=== PATIENT | female | born 1955 | race Caucasian/White ===

== ENCOUNTER → 2022-11-18 | Outpatient (CLI) | payer MEDICARE ==
--- NOTE | 2022-11-18 14:49 | US ---
EXAMINATION TYPE: US carotid duplex BILAT DATE OF EXAM: 11/18/2022 COMPARISON: NONE CLINICAL INDICATION: Female, 66 years old with history of R55 SYNCOPE AND COLLAPSE; syncope. TECHNIQUE: Carotid duplex ultrasound examination. Indirect Doppler criteria was utilized. FINDINGS: EXAM MEASUREMENTS: RIGHT: Peak Systolic Velocity (PSV) cm/sec ----- Right CCA: 63.4 ----- Right ICA: 93.9 ----- Right ECA: 85.2 ICA/CCA ratio: 70.6 RIGHT: End Diastole cm/sec ----- Right CCA: 15.4 ----- Right ICA: 31.4 ----- Right ECA: 0 LEFT: Peak Systolic Velocity (PSV) cm/sec ----- Left CCA: 69.2 ----- Left ICA: 96.8 ----- Left ECA: 89.5 ICA/CCA ratio: 1.4 LEFT: End Diastole cm/sec ----- Left CCA: 16.9 ----- Left ICA: 34.3 ----- Left ECA: 0 VERTEBRALS (direction of flow): Right Vertebral: Antegrade Left Vertebral: Antegrade Rhythm: Normal YARN DYER NOTES: No significant stenosis seen Amaral scale images show mild to moderate peripheral plaque left carotid bulb level. IMPRESSION: No hemodynamically significant stenosis in either internal carotid artery. Criteria for Assigning % of Stenosis / Diameter reduction (Estimation based on the indirect measurements of the internal carotid artery velocities (ICA PSV). 1. Normal (no stenosis)=ICA PSV < 125 cm/s: ratio < 2.0: ICA EDV<40 cm/s. 2. Less than 50% stenosis=ICA PSV < 125 cm/s: ratio < 2.0: ICA EDV<40 cm/s. 3. 50 to 69% stenosis=ICA PSV of 125 to 230 cm/s: ration 2.0 ? 4.0: ICA EDV 40-100 cm/s. 4. Greater than 70% stenosis to near occlusion= ICA PSV > 230 cm/s: ratio > 4.0: ICA EDV > 100 cm/s. 5. Near occlusion= ICA PSV velocities may be low or undetectable: variable ratio and ICA EDV. 6. Total occlusion=unable to detect flow.
--- NOTE | 2022-11-18 17:01 | CA ---
Transthoracic Echo Report Name: Sandra Roland Age: 66 Gender: F : 1955 Exam Date: 11/18/2022 12:27 Exam Location: [facility] Ht (in): 67 Wt (lb): 135 Ordering Physician: Mickey Donato MD Attending/Referring Phys: Rylee Ayon PAC Lithographic Proofer Ethel Lira RDCS Procedure CPT: Indications: R55 SYNCOPE AND COLLAPSE Cardiac Hx: Technical Quality: Good Contrast 1: Total Dose (mL): Contrast 2: Total Dose (mL): MEASUREMENTS (Male / Female) Normal Values 2D ECHO LV Diastolic Diameter PLAX 4.2 cm 4.2 - 5.9 / 3.9 - 5.3 cm LV Systolic Diameter PLAX 2.8 cm IVS Diastolic Thickness 0.9 cm 0.6 - 1.0 / 0.6 - 0.9 cm LVPW Diastolic Thickness 0.9 cm 0.6 - 1.0 / 0.6 - 0.9 cm LV Relative Wall Thickness 0.4 RV Internal Dim ED PLAX 2.6 cm LA Systolic Diameter LX 2.9 cm 3.0 - 4.0 / 2.7 - 3.8 cm LA Volume 36.0 cm??? 18 - 58 / 22 - 52 cm??? M-MODE Aortic Root Diameter MM 2.9 cm MV E Point Septal Separation 0.2 cm AV Cusp Separation MM 1.8 cm DOPPLER AV Peak Velocity 100.8 cm/s AV Peak Gradient 4.1 mmHg MV Area PHT 3.2 cm??? Mitral E Point Velocity 73.9 cm/s Mitral A Point Velocity 54.5 cm/s Mitral E to A Ratio 1.4 MV Deceleration Time 236.8 ms MV E' Velocity 7.1 cm/s Mitral E to MV E' Ratio 10.4 TR Peak Velocity 184.8 cm/s TR Peak Gradient 13.7 mmHg Right Ventricular Systolic Press 18.2 mmHg FINDINGS Left Ventricle Left ventricular ejection fraction is estimated at 60-65 %. Left ventricular cavity size normal. Left ventricular wall thickness normal. No obvious regional wall motion abnormalities. Right Ventricle Normal right ventricular size and function. Right ventricular systolic pressure within normal limits. Right Atrium Normal right atrial size. Left Atrium Normal left atrial size. Mitral Valve Structurally normal mitral valve. Trace to mild mitral regurgitation. Aortic Valve Trileaflet aortic valve. No aortic valve stenosis or regurgitation. Tricuspid Valve Structurally normal tricuspid valve. Mild tricuspid regurgitation. Pulmonic Valve Structurally normal pulmonic valve. No pulmonic regurgitation. Pericardium Normal pericardium. No pericardial effusion. Aorta Normal size aortic root and proximal ascending aorta. CONCLUSIONS Normal LV systolic function Previewed by: Dr. Torin Guillaume MD (Electronically Signed) Final Date: 18 November 2022 17:00
== END | disposition home or self-care (01) ==
LOC: RADECHMAIN 11:57
PROVIDERS: ATTEND Family Medicine
DX: R55 Syncope and collapse (principal)
CPT/HCPCS: 93306; 93880

== ENCOUNTER → 2023-09-03 | Outpatient (CLI) | payer MEDICARE ==
--- NOTE | 2023-09-03 11:21 | US ---
EXAMINATION TYPE: US gallbladder DATE OF EXAM: 09/03/2023 COMPARISON: NONE CLINICAL INDICATION: Female, 67 years old with history of R10.11 RIGHT UPPER QUADRANT PAIN; Pt states RUQ pain x 1 month TECHNIQUE: Multiple sonographic images of the right upper quadrant are obtained. FINDINGS: EXAM MEASUREMENTS: Liver Length: 12.5 cm Gallbladder Wall: 0.2 cm CBD: 0.4 cm Right Kidney: 9.2 x 3.2 x 5.1 cm Pancreas: wnl Liver: wnl Gallbladder: wnl Evidence for sonographic Oreilly's sign: No CBD: wnl Right Kidney: Mildly dilated renal pelvis= 0.7 cm with possible 3mm calculus mid medial within dilat ed renal pelvis IMPRESSION: 1. Mild pelviectasis which may be transient. No calyceal dilatation to suggest hydronephrosis at this time. Possible 3 mm stone within the right renal collecting system. If there is right renal colic, c onsider short interval follow-up. 2. No gallstones or biliary ductal dilatation.
== END | disposition home or self-care (01) ==
LOC: RADUSWWP 10:28
PROVIDERS: ATTEND Family Medicine
DX: N28.89 Other specified disorders of kidney and ureter (principal)
CPT/HCPCS: 76705

== ENCOUNTER → 2023-09-15 | Outpatient (CLI) | payer MEDICARE ==
--- NOTE | 2023-09-15 16:30 | CA ---
Exercise Stress Test Report Name: Sandra Roland Exam Date: 09/15/2023 11:04 Exam Location: [facility] Ht (in): 67 Wt (lb): 142 BSA: 1.75 Ordering Phys: Mickey Donato MD Referring Phys: Neelam Mckinley PAC Technologist: CORTEZ JORGENSEN Age: 67 Gender: F : 1955 Procedure CPT: Indications: R07.89 chest pain ICD-10 Codes: Patient History: CP, FAMILY HX Medications: NONE Meds past 24 hrs: Pretest Chest Pain: STRESS TEST [place] Protocol Exercise Duration (min:sec): 03:[address] Depressions (mm): Angina Score: Fitzpatrick Score: Resting HR (bpm): 66 Peak HR (bpm): 144 Resting BP (mmHg): 161 / 70 Peak BP (mmHg): 207 / 63 MPHR: 151 Target HR: 128 % MPHR: 95 METS: 4.4 Total Dose: Peak Dose: Atropine: Double Product: 91334 BP Response: Stress Termination: Reached target heart rate Stress Symptoms: No chest pain or symptoms Stress Summary: ECG ANALYSIS Resting ECG: Stress ECG: CONCLUSIONS Patient underwent exercise stress EKG with a [place] protocol treadmill stress test. Patient exercised into Stage 1 for a total of 3 minutes reaching a total of 4.4 METS. Patient's maximum heart rate was 144 which represented 95% age-predicted maximum heart rate. Stress EKG findings: At baseline patient's EKG showed normal sinus rhythm, normal axis, no significant ST or T wave abnormalities, T-wave inversion V1, borderline in V2. At peak exercise, EKG showed mildly abnormal response with [address] depressions in the lateral leads. Conclusions: 1. Mildly abnormal EKG response to exercise. Consider stress testing with imaging modality if clinically indicated. 2. Poor exercise capacity. Dr. Mark Duffy DO (Electronically Signed) Final Date: 15 September 2023 16:29
== END | disposition home or self-care (01) ==
LOC: RADNMMAIN 10:33
PROVIDERS: ATTEND Family Medicine
DX: R94.31 Abnormal electrocardiogram [ECG] [EKG] (principal); R07.89 Other chest pain
CPT/HCPCS: 93017

== ENCOUNTER → 2024-02-11 | Outpatient (CLI) | payer MEDICARE ==
--- NOTE | 2024-02-18 21:50 | MM ---
Reason for Exam: Screening (asymptomatic). Last screening mammogram was performed 12 month(s) ago. Patient History: Menarche at age 12. First Full-Term at age 34. Late child-bearing (after 30). Left ovary removed at age 44. Right ovary removed at age 44. Hysterectomy at age 44. Postmenopausal. Patient used Progesterone for 4 years. Excisional Biopsy on the Right side. Excisional Biopsy on the Right side. Maternal aunt had breast cancer. Maternal aunt had breast cancer. Risk Values: Karmen 5 year model risk: 3.3%. NCI Lifetime model risk: 9.4%. Prior Study Comparison: 10/04/2014 Bilateral Screening Mammogram, [facility] [address]. 11/01/2015 Bilateral Screening Mammogram, [facility] [address]. 11/01/2016 Bilateral Screening Mammogram, [facility] [address]. 03/11/2018 Bilateral Screening Mammogram, [facility] [address]. 05/01/2020 Bilateral Screening Mammogram, [facility]. 07/09/2021 Bilateral Screening Mammogram, [facility]. 02/27/2023 Bilateral Screening Mammogram, [facility]. Tissue Density: The breasts are heterogeneously dense, which may obscure small masses. Findings: Analyzed By CAD. Chronic nodularity in the right breast. Unchanged grouped microcalcifications central posterior right breast. Other areas of asymmetric density are also unchanged. There is no suspicious group of microcalcifications or new suspicious mass in either breast. Overall Assessment: Benign, BI-RAD 2 Management: Screening Mammogram of both breasts in 1 year. See note below in regards to the patient's increased 5 year Karmen score. Patient should continue monthly self-breast exams. A clinical breast exam by your physician is recommended on an annual basis. This exam should not preclude additional follow-up of suspicious palpable abnormalities. Note on Karmen scores and lifetime risk: 1. A Karmen score greater than 3% is considered moderate risk. If this is the case, consider specialist referral to assess eligibility for a risk reducing agent. 2. If overall lifetime risk for the development of breast cancer is 20% or higher, the patient may qualify for future screening with alternating mammogram and breast MRI. Electronically signed and approved by: Dez Julien M.D. Radiologist
== END | disposition home or self-care (01) ==
LOC: RADMAMWWP 08:12
PROVIDERS: ATTEND Family Medicine
DX: Z12.31 Encounter for screening mammogram for malignant neoplasm of breast (principal); R92.333 Mammographic heterogeneous density, bilateral breasts; Z78.0 Asymptomatic menopausal state; Z80.3 Family history of malignant neoplasm of breast
CPT/HCPCS: 77067

== ENCOUNTER 2024-08-18 12:05 | Observation (INO) | payer MEDICARE ==
--- NOTE | 2024-08-18 12:31 | ED ---
General Adult HPI - General Chief complaint: Chest Pain Stated complaint: chest pressure/pain Time Seen by Provider: 08/18/24 12:15 Source: patient, RN notes reviewed, old records reviewed Mode of arrival: ambulatory Limitations: no limitations - History of Present Illness Initial comments: This is a 68-year-old female who presents to the emergency department stating for the last 10 or 11 days she has had cold-like symptoms which started as a sore throat and then congestion and a slight dry cough. Patient states she has been placed on steroids and an antibiotic and those symptoms have gotten a little better but they continued. Patient states as of yesterday she started having significant chest pressure that radiated to both shoulders was short of breath and had a diaphoretic episode with the symptoms. Patient states she took Advil and went to bed last night and she did not have any chest pain. Patient states she woke up this morning again started having the chest pressure was not quite as bad as yesterday but again the pressure in her chest into her shoulders with mild difficulty breathing. Patient denies any diabetes hypertension high cholesterol. Patient denies any history of smoking. - Related Data Allergies Allergy/AdvReac Type Severity Reaction Status Date / Time No Known Allergies Allergy Verified 08/18/24 12:15 Review of Systems ROS Statement: Those systems with pertinent positive or pertinent negative responses have been documented in the HPI. ROS Other: All systems not noted in ROS Statement are negative. Past Medical History History of Any Multi-Drug Resistant Organisms: None Reported Past Surgical History: Hysterectomy Past Psychological History: No Psychological Hx Reported Smoking Status: Never smoker Past Alcohol Use History: None Reported Past Drug Use History: None Reported General Exam - General Exam Comments Initial Comments: GENERAL: Patient is well-developed and well-nourished. Patient is nontoxic and well- hydrated and is in mild distress. ENT: Neck is soft and supple. No significant lymphadenopathy is noted. Oropharynx is clear. Moist mucous membranes. Neck has full range of motion without eliciting any pain. EYES: The sclera were anicteric and conjunctiva were pink and moist. Extraocular movements were intact and pupils were equal round and reactive to light. Eyelids were unremarkable. PULMONARY: Unlabored respirations. Good breath sounds bilaterally. No audible rales rhonchi or wheezing was noted. CARDIOVASCULAR: There is a regular rate and rhythm without any murmurs gallops or rubs. ABDOMEN: Soft and nontender with normal bowel sounds. SKIN: Skin is clear with no lesions or rashes and otherwise unremarkable. NEUROLOGIC: Patient is alert and oriented x3. Cranial nerves II through XII are grossly intact. Motor and sensory are also intact. Normal speech, volume and content. Symmetrical smile. MUSCULOSKELETAL: Normal extremities with adequate strength and full range of motion. No lower extremity swelling or edema. No calf tenderness. LYMPHATICS: No significant lymphadenopathy is noted PSYCHIATRIC: Normal psychiatric evaluation. Limitations: no limitations Course Vital Signs 08/18/24 08/18/24 12:12 12:58 Temperature 97.4 F L Pulse Rate 74 67 Respiratory 20 18 Rate Blood Pressure 202/84 186/73 O2 Sat by Pulse 98 100 Oximetry Medical Decision Making - Medical Decision Making EKG is interpreted by myself. EKG shows a sinus rhythm at 69 bpm AL was 154 QRS is 98 QT interval 367 QTc is 385. Patient's EKG shows no ST segment elevation or depression. Was pt. sent in by a medical professional or institution (, PA, DEPARTMENTAL SHIPPING CLERK, urgent care, hospital, or group home...) When possible be specific @ -No Did you speak to anyone other than the patient for history (EMS, parent, family, police, friend...)? What history was obtained from this source @ -No Did you review nursing and triage notes (agree or disagree)? Why? @ -I reviewed and agree with nursing and triage notes Were old charts reviewed (outside hosp., previous admission, EMS record, old EKG, old radiological studies, urgent care reports/EKG's, group home records)? Report findings @ -No old charts were reviewed Differential Diagnosis? @ -Differential Chest Pain: Stable Angina, Unstable Angina, STEMI, NSTEMI Aortic Dissection, Pneumothorax, Musculoskeletal, Esophageal Spasm GERD, Cholecystitis, Pancreatitis, Zoster, this is not meant to be an all-inclusive list. EKG interpreted by me (3pts min.). @ -As above X-rays interpreted by me (1pt min.). @ -Chest x-ray showed no acute abnormality CT interpreted by me (1pt min.). @ -None done U/S interpreted by me (1pt. min.). @ -None done What testing was considered but not performed or refused? (CT, X-rays, U/S, labs)? Why? @ -None What meds were considered but not given or refused? Why? @ -None Did you discuss the management of the patient with other professionals (professionals i.e. , PA, DEPARTMENTAL SHIPPING CLERK, lab, RT, psych nurse, delinquency prevention social worker, tourist camp attendant, teacher, campus security officer, case repairer)? Give summary @ -I spoke with [facility] [place] [facility] he agreed admit the patient but the patient wrote admitting orders Was smoking cessation discussed for >3mins.? @ -No Was critical care preformed (if so, how long)? @ -No Were there social determinants of health that impacted care today? How? (Homelessness, low income, unemployed, alcoholism, drug addiction, transportation, low edu. Level, literacy, decrease access to med. care, fpc, rehab)? @ -No Was there de-escalation of care discussed even if they declined (Discuss DNR or withdrawal of care, Hospice)? DNR status @ -No What co-morbidities impacted this encounter? (DM, HTN, Smoking, COPD, CAD, Cancer, CVA, ARF, Chemo, Hep., AIDS, mental health diagnosis, sleep apnea, morbid obesity)? @ -None Was patient admitted / discharged? Hospital course, mention meds given and route, prescriptions, significant lab abnormalities, going to OR and other pertinent info. @ -Patient's chest pain still present but not as bad. Patient's lab work was normal patient will be admitted to [facility] [place]. Undiagnosed new problem with uncertain prognosis? @ -No Drug Therapy requiring intensive monitoring for toxicity (Heparin, Nitro, Insulin, Cardizem)? @ -No Were any procedures done? @ -No Diagnosis/symptom? @ -Chest pain Acute, or Chronic, or Acute on Chronic? @ -Acute Uncomplicated (without systemic symptoms) or Complicated (systemic symptoms)? @ -Complicated Side effects of treatment? @ -No Exacerbation, Progression, or Severe Exacerbation? @ -No Poses a threat to life or bodily function? How? (Chest pain, USA, MS, pneumonia, PE, COPD, DKA, ARF, appy, cholecystitis, CVA, Diverticulitis, Homicidal, Suicidal, threat to staff... and all critical care pts) @ -Yes this can be an MS and lead to endorgan dysfunction - Lab Data Result diagrams: 08/18/24 12:36 01/16/25 12:36 Lab Results 08/18/24 08/18/24 08/18/24 Range/Units 12:36 12:36 12:36 WBC 11.5 H (3.8-10.6) k/uL RBC 4.16 (3.80-5.40) m/uL Hgb 12.2 (11.4-16.0) gm/dL Hct 36.4 (34.0-46.0) % MCV 87.5 (80.0-100.0) fL MCH 29.3 (25.0-35.0) pg MCHC 33.5 (31.0-37.0) g/dL RDW 13.1 (11.5-15.5) % Plt Count 376 (150-450) k/uL MPV 8.0 Neutrophils % 56 % Lymphocytes % 28 % Monocytes % 7 % Eosinophils % 6 % Basophils % 0 % Neutrophils # 6.5 (1.3-7.7) k/uL Lymphocytes # 3.3 (1.0-4.8) k/uL Monocytes # 0.8 (0-1.0) k/uL Eosinophils # 0.7 (0-0.7) k/uL Basophils # 0.0 (0-0.2) k/uL PT 10.1 (10.0-12.5) sec INR 0.9 (<1.2) APTT 22.5 (22.0-30.0) sec Sodium 132 L (137-145) mmol/L Potassium 4.5 (3.5-5.1) mmol/L Chloride 99 (98-107) mmol/L Carbon Dioxide 27 (22-30) mmol/L Anion Gap 6 mmol/L BUN 16 (7-17) mg/dL Creatinine 0.79 (0.52-1.04) mg/dL Est GFR (CKD-EPI)AfAm 89 (>60 ml/min/1.73 sqM) Est GFR (CKD-EPI)NonAf 77 (>60 ml/min/1.73 sqM) Glucose 108 H (74-99) mg/dL Calcium 10.1 (8.4-10.2) mg/dL Magnesium 2.1 (1.6-2.3) mg/dL Total Bilirubin 0.2 (0.2-1.3) mg/dL AST 23 (14-36) U/L ALT 27 (4-34) U/L Alkaline Phosphatase 137 H (38-126) U/L Troponin I (0.000-0.034) ng/mL Total Protein 7.0 (6.3-8.2) g/dL Albumin 4.2 (3.5-5.0) g/dL Influenza Type A (PCR) (Not Detectd) Influenza Type B (PCR) (Not Detectd) RSV (PCR) (Not Detectd) SARS-CoV-2 (PCR) (Not Detectd) 08/18/24 08/18/24 Range/Units 12:36 12:36 WBC (3.8-10.6) k/uL RBC (3.80-5.40) m/uL Hgb (11.4-16.0) gm/dL Hct (34.0-46.0) % MCV (80.0-100.0) fL MCH (25.0-35.0) pg MCHC (31.0-37.0) g/dL RDW (11.5-15.5) % Plt Count (150-450) k/uL MPV Neutrophils % % Lymphocytes % % Monocytes % % Eosinophils % % Basophils % % Neutrophils # (1.3-7.7) k/uL Lymphocytes # (1.0-4.8) k/uL Monocytes # (0-1.0) k/uL Eosinophils # (0-0.7) k/uL Basophils # (0-0.2) k/uL PT (10.0-12.5) sec INR (<1.2) APTT (22.0-30.0) sec Sodium (137-145) mmol/L Potassium (3.5-5.1) mmol/L Chloride (98-107) mmol/L Carbon Dioxide (22-30) mmol/L Anion Gap mmol/L BUN (7-17) mg/dL Creatinine (0.52-1.04) mg/dL Est GFR (CKD-EPI)AfAm (>60 ml/min/1.73 sqM) Est GFR (CKD-EPI)NonAf (>60 ml/min/1.73 sqM) Glucose (74-99) mg/dL Calcium (8.4-10.2) mg/dL Magnesium (1.6-2.3) mg/dL Total Bilirubin (0.2-1.3) mg/dL AST (14-36) U/L ALT (4-34) U/L Alkaline Phosphatase (38-126) U/L Troponin I <0.012 (0.000-0.034) ng/mL Total Protein (6.3-8.2) g/dL Albumin (3.5-5.0) g/dL Influenza Type A (PCR) Not Detected (Not Detectd) Influenza Type B (PCR) Not Detected (Not Detectd) RSV (PCR) Not Detected (Not Detectd) SARS-CoV-2 (PCR) Not Detected (Not Detectd) Disposition Clinical Impression: Chest pain Disposition: ADMITTED IP TO THIS HOSP Referrals: Mickey Donato MD [Primary Care Provider] - 1-2 days Time of Disposition: 14:16
[2024-08-18] MEDS: ASPIRIN 81 MG PO STA (12:56)
[2024-08-18] MEDS: NITROGLYCERIN OINT 1 INCH/GM PACKET TOPICAL STA (12:57)
[2024-08-18 12:58] LABS: Basophils % (A) 0 %; Eosinophils # (A) 0.7 k/uL (0-0.7); Eosinophils % (A) 6 %; HCT 36.4 % (34.0-46.0); HGB 12.2 gm/dL (11.4-16.0); Lymphocytes # (A) 3.3 k/uL (1.0-4.8); Lymphocytes % (A) 28 %; MCH 29.3 pg (25.0-35.0); MCHC 33.5 g/dL (31.0-37.0); MCV 87.5 fL (80.0-100.0); Monocytes # (A) 0.8 k/uL (0-1.0); Monocytes % (A) 7 %; Neutrophils # (A) 6.5 k/uL (1.3-7.7); Neutrophils % (A) 56 %; Platelet Count 376 k/uL (150-450); RBC 4.16 m/uL (3.80-5.40); RDW 13.1 % (11.5-15.5); WBC 11.5 k/uL (3.8-10.6)
--- NOTE | 2024-08-18 12:59 | XR ---
EXAMINATION TYPE: XR chest 2V DATE OF EXAM: 08/18/2024 12:49 PM COMPARISON: None. CLINICAL INDICATION: Female, 68 years old with history of Chest Pain, TECHNIQUE: XR chest 2V view(s) obtained. FINDINGS: The heart size is normal. The pulmonary vasculature is normal. Small posterior pleural effusion may be present. Lungs otherwise appear clear. IMPRESSION: 1. Suggestion of a small posterior pleural effusion [facility] Yaya Ayala, , 08/18/2024 12:56 PM
[2024-08-18 13:04] LABS: ALT 27 U/L (4-34); AST 23 U/L (14-36); African American GFR (CKD) 89 (>60 ml/min/1.73 sqM); Albumin 4.2 g/dL (3.5-5.0); Alkaline Phosphatase 137 U/L (38-126); Anion Gap 6 mmol/L; Blood Urea Nitrogen 16 mg/dL (7-17); Calcium 10.1 mg/dL (8.4-10.2); Carbon Dioxide 27 mmol/L (22-30); Chloride 99 mmol/L (98-107); Glucose 108 mg/dL (74-99); Magnesium 2.1 mg/dL (1.6-2.3); Non-African American GFR(CKD) 77 (>60 ml/min/1.73 sqM); Potassium 4.5 mmol/L (3.5-5.1); Sodium 132 mmol/L (137-145); Total Bilirubin 0.2 mg/dL (0.2-1.3)
[2024-08-18 13:24] LABS: Influenza A Not Detected (Not Detectd); Influenza B Not Detected (Not Detectd); RSV Not Detected (Not Detectd)
[2024-08-18 13:25] LABS: INR 0.9 (<1.2); Partial Thromboplastin Time 22.5 sec (22.0-30.0); Prothrombin Time 10.1 sec (10.0-12.5)
[2024-08-18] MEDS ORDERED: NITROGLYCERIN SL TABS 0.4 MG TAB SUBLINGUAL PRN (14:17)
[2024-08-18] MEDS: LABETALOL 5 MG/ML VIAL MDV IVP STA (14:31)
--- NOTE | 2024-08-18 17:24 | P.HPIM ---
History of Present Illness H&P Date: 08/18/24 68 year old F with no PMH presents to the ED for chest pain. Patient reports bronchitis she has been recovering from for the past week since returning from [place]. Chest pain started around 1030AM yesterday described as substernal, sharp and stabbing in nature without radiation. No associated symptoms. No radiation. No changes with deep inspiration or movement. Pain was intermittent and improved with Advil. This morning she woke up feeling chest pressure which prompted her to come to the ED. In the ED she underwent extensive evaluation. BP 202/84, HR 74, T 97.4F, RR 20, 98% on RA. CBC, Coag panel, CMP significant for WBC 11.5, Na 132, glu 108, alk phos 137. Trop < 0.012 x 2. COVID, RSV, Flu neg. EKG sinus rhythm without ST-T wave changes. CXR possible small posterior pleural effusion. Patient is admitted for Cardiology evaluation. General: non toxic, no distress, appears at stated age Derm: warm, dry Head: atraumatic, normocephalic, symmetric Eyes: EOMI, no lid lag, anicteric sclera Mouth: no lip lesion, mucus membranes moist Cardiovascular: S1S2 reg, no murmur Lungs: CTA bilateral, no rhonchi, no rales , no accessory muscle use Ext: no gross muscle atrophy, no edema, no contractures Neuro: no focal neuro deficits Psych: Alert, oriented, appropriate affect Based on my assessment of this patient, this patient meets a high complexity level of care. Chest pain: ASA 81 mg PO QD. Echo ordered. ACS ruled out. Telemetry monitoring. Positive stress test on 09/2023. Cardiology consultation. Elevated BP without the diagnosis of hypertension: Status post Labetalol 10 mg IV in the ED. Monitor for now without antihypertensive medication. CODE STATUS: FULL CODE DVT Prophylaxis: Lovenox SQ GI Prophylaxis: Designated medical POA if patient is not able to make medical decisions for themselves: I have reviewed the following end user consultant notes: ED note. I have reviewed the results of the following tests: As above. I have ordered the following tests: As above. I have discussed the care of this patient with the following independent historian: I have independently interpreted the following test below: EKG. I have discussed the management of this patient with the following physician: Past Medical History History of Any Multi-Drug Resistant Organisms: None Reported Past Surgical History: Hysterectomy Past Psychological History: No Psychological Hx Reported Smoking Status: Never smoker Past Alcohol Use History: None Reported Past Drug Use History: None Reported Medications and Allergies Home Medications Medication Instructions Recorded Confirmed Type Albuterol Sulfate [Albuterol 2 puff PO RT-Q4H PRN 08/18/24 08/18/24 History Sulfate Hfa] Azithromycin [Zithromax Z Pack] See Taper PO DIRECTED 08/18/24 08/18/24 History Benzonatate [Tessalon Perles] 200 mg PO TID PRN 08/18/24 08/18/24 History Allergies Allergy/AdvReac Type Severity Reaction Status Date / Time No Known Allergies Allergy Verified 08/18/24 15:22 Physical Exam Vitals: Vital Signs Temp Pulse Resp BP Pulse Ox 08/18/24 16:00 78 18 134/60 96 08/18/24 14:49 62 16 166/74 97 08/18/24 14:16 67 18 180/90 96 08/18/24 12:58 67 18 186/73 100 08/18/24 12:12 97.4 F L 74 20 202/84 98 Intake and Output 08/18/24 08/18/24 08/18/24 06:59 14:59 22:59 Other: Weight 63.503 kg Results CBC & Chem 7: 08/18/24 12:36 08/18/24 12:36 Labs: Abnormal Lab Results - Last 24 Hours (Table) 08/18/24 08/18/24 Range/Units 12:36 12:36 WBC 11.5 H (3.8-10.6) k/uL Sodium 132 L (137-145) mmol/L Glucose 108 H (74-99) mg/dL Alkaline Phosphatase 137 H (38-126) U/L
[2024-08-18] MEDS ORDERED: NITROGLYCERIN OINT 1 INCH/GM PACKET TOPICAL SCH (18:00)
[2024-08-19 07:55] VITALS: BP 167/71; PULSE 66; RESP 16; TEMP 98.1
[2024-08-19] MEDS ORDERED: ASPIRIN 325 MG TAB PO SCH (09:00)
[2024-08-19] MEDS: ASPIRIN 81 MG PO SCH (09:03)
[2024-08-19] MEDS: ENOXAPARIN 40 MG/0.4 ML SYRINGE SQ SCH (09:03)
[2024-08-19 09:41] LABS: Chol/HDL Ratio 3.41 Ratio; LDL Cholesterol,Calculated 132.3 mg/dL (0.0-131.0)
--- NOTE | 2024-08-19 10:30 | P.CRDCN ---
History of Present Illness History of present illness: HISTORY OF PRESENT ILLNESS: This is a 68-year-old female with a past medical history significant for recent bronchitis. Patient follows in the office with Dr. Damian. We have been asked to see the patient in consultation for chest pain. Patient examined at the bedside. Patient states that she recently had bronchitis. She states that she has been prescribed steroids and antibiotics. She states over the past few days she was checking her blood pressure at home and noticed her blood pressure was " all over the place". States that she usually does not have high blood pressure but was getting elevated readings at home. She states that she then developed chest discomfort. She states the pain was in the middle of her chest. She states yesterday the pressure lasted pretty much all day long. She states the pain is worse with coughing. She states the pain is not worse with deep inspiration or with movement. Patient denies any known history of CAD. Patient's blood pressures have been labile since coming to the hospital. DIAGNOSTICS: - EKG reveals sinus mechanism nonspecific ST-T wave changes. - Chest xray suggestion of small posterior pleural effusion - Laboratory data: WBC 11.5. Hemoglobin 12.2. Platelet count 376. Sodium 132. Potassium 4.5. BUN 16. Creatinine 0.79. Magnesium 2.1. Troponin negative x 3. - Current home cardiac medications include none - Most recent echocardiogram obtained in November 2022 revealed ejection fraction 55% with no significant valvular abnormalities noted -Patient underwent stress test in September 2023 which was negative for ischemia REVIEW OF SYSTEMS: At the time of my exam: CONSTITUTIONAL: Denies fever or chills. HEENT: Denies blurred vision, vision changes, or eye pain. Denies hemoptysis CARDIOVASCULAR: Denies chest pain. Denies orthopnea. Denies PND. Denies palpitations RESPIRATORY: Denies shortness of breath. GASTROINTESTINAL: Denies abdominal pain. Denies nausea or vomiting. HEMATOLOGIC: Denies bleeding disorders. GENITOURINARY: Denies any blood in urine. SKIN: Denies pruitis. Denies rash. PHYSICAL EXAM: VITAL SIGNS: Reviewed. GENERAL: Well-developed in no acute distress. HEENT: Head is normocephalic. Pupils are equal, round. Sclerae anicteric. Mucous membranes of the mouth are moist. Neck supple. No JVD or thyromegaly LUNGS: Respirations even and unlabored. Lungs essentially clear to auscultation bilaterally. HEART: Regular rate and rhythm. S1 and S2 heard. ABDOMEN: Soft. Nondistended. Nontender. EXTREMITIES: Normal range of motion. No clubbing or cyanosis. Peripheral pulses intact. No lower extremity edema NEUROLOGIC: Awake and alert. Oriented x 3. ASSESSMENT: Chest pain, troponin negative x 3 Recent diagnosis of bronchitis Labile blood pressures Hyperlipidemia, LDL 131 PLAN: An acute coronary event has been ruled out Add Lipitor 20 mg at night Continue to monitor blood pressures Obtain 2D echo to assess cardiac structure and function Patient to undergo stress echocardiogram today If negative, patient may be discharged home from a cardiac standpoint Nurse practitioner note has been reviewed by physician. Signing provider agrees with the documented findings, assessment, and plan of care documented by KALSOMINER as a scribe. Past Medical History History of Any Multi-Drug Resistant Organisms: None Reported Past Surgical History: Section, Hysterectomy Past Anesthesia/Blood Transfusion Reactions: Postoperative Nausea & Vomiting (PONV) Past Psychological History: No Psychological Hx Reported Smoking Status: Former smoker Past Alcohol Use History: Occasional Past Drug Use History: None Reported Medications and Allergies Home Medications Medication Instructions Recorded Confirmed Type Albuterol Sulfate [Albuterol 2 puff PO RT-Q4H PRN 08/18/24 08/18/24 History Sulfate Hfa] Azithromycin [Zithromax Z Pack] See Taper PO DIRECTED 08/18/24 08/18/24 History Benzonatate [Tessalon Perles] 200 mg PO TID PRN 08/18/24 08/18/24 History Allergies Allergy/AdvReac Type Severity Reaction Status Date / Time No Known Allergies Allergy Verified 08/18/24 15:22 Physical Exam Vitals: Vital Signs Temp Pulse Pulse Resp BP BP Pulse Ox 08/19/24 07:15 98.1 F 66 16 167/71 96 08/19/24 02:00 98.3 F 70 17 129/68 97 08/18/24 23:11 97.6 F 63 17 186/72 92 L 08/18/24 22:54 76 18 135/73 99 08/18/24 22:00 67 18 138/64 97 08/18/24 21:00 70 18 132/57 98 08/18/24 18:00 79 18 130/54 97 08/18/24 17:00 80 18 138/58 98 08/18/24 16:00 78 18 134/60 96 08/18/24 14:49 62 16 166/74 97 08/18/24 14:16 67 18 180/90 96 08/18/24 12:58 67 18 186/73 100 08/18/24 12:12 97.4 F L 74 20 202/84 98 Intake and Output 08/18/24 08/19/24 08/19/24 22:59 06:59 14:59 Other: # Voids 2 Weight 63.503 kg Results 08/18/24 12:36 08/18/24 12:36 Cardiac Enzymes 08/18/24 08/18/24 08/18/24 Range/Units 12:36 12:36 15:02 AST 23 (14-36) U/L Troponin I <0.012 <0.012 (0.000-0.034) ng/mL 08/18/24 Range/Units 17:34 AST (14-36) U/L Troponin I <0.012 (0.000-0.034) ng/mL Coagulation 08/18/24 Range/Units 12:36 PT 10.1 (10.0-12.5) sec APTT 22.5 (22.0-30.0) sec Lipids 08/18/24 Range/Units 12:36 Triglycerides 134.00 (0.00-149.00) mg/dL Cholesterol 225.00 H (0.00-200.00) mg/dL HDL Cholesterol 65.90 H (40.00-60.00) mg/dL Cholesterol/HDL Ratio 3.41 Ratio CBC 08/18/24 Range/Units 12:36 WBC 11.5 H (3.8-10.6) k/uL RBC 4.16 (3.80-5.40) m/uL Hgb 12.2 (11.4-16.0) gm/dL Hct 36.4 (34.0-46.0) % Plt Count 376 (150-450) k/uL Comprehensive Metabolic Panel 08/18/24 Range/Units 12:36 Sodium 132 L (137-145) mmol/L Potassium 4.5 (3.5-5.1) mmol/L Chloride 99 (98-107) mmol/L Carbon Dioxide 27 (22-30) mmol/L BUN 16 (7-17) mg/dL Creatinine 0.79 (0.52-1.04) mg/dL Glucose 108 H (74-99) mg/dL Calcium 10.1 (8.4-10.2) mg/dL AST 23 (14-36) U/L ALT 27 (4-34) U/L Alkaline Phosphatase 137 H (38-126) U/L Total Protein 7.0 (6.3-8.2) g/dL Albumin 4.2 (3.5-5.0) g/dL Current Medications Generic Name Dose Route Start Last Admin Trade Name Freq PRN Reason Stop Dose Admin Aspirin 81 mg 08/19/24 09:00 08/19/24 09:03 Aspirin 81 Mg PO 81 mg DAILY ANDRY Administration Enoxaparin Sodium 40 mg 08/19/24 09:00 08/19/24 09:03 Enoxaparin 40 Mg/0.4 Ml Syringe SQ 40 mg DAILY ANDRY Administration Nitroglycerin 0.4 mg 08/18/24 14:17 Nitroglycerin Sl Tabs 0.4 Mg Tab SUBLINGUAL Q5M PRN Chest Pain Intake and Output 08/18/24 08/19/24 08/19/24 22:59 06:59 14:59 Other: # Voids 2 Weight 63.503 kg 08/18/24 12:36 08/18/24 12:36
--- NOTE | 2024-08-19 13:37 | CA ---
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 Procedure CPT: Indication: CP ICD-9 Codes: Rhythm: Patient History: CHEST PAIN, PRIOR SMOKER Cardiac Medications: Medications in past 24 hours: Contrast: N/A Stress Results Protocol: [place] Total dose(mL): Exercise Duration (min:sec): 7:[address] Depression (mm): 0 Angina Score: 0 Fitzpatrick Score: 7.5 METS: 9.1 Resting HR: 79 Resting BP: 166 / 72 Peak HR: 158 Peak BP: 213 / 56 Max Predicted HR: 150 105 % Max Predicted HR Target HR: 128 Double Product: [id number] Stress Summary: The patient's target heart rate was achieved The hemodynamic response to exercise was normal BP Response: Reason for Termination: MAX EXERTION/TARGET HR Cardiac Symptoms: NO SYMPTOMS ECG Analysis Resting ECG: Normal sinus rhythm, normal ECG Stress ECG: No abnormal ST/T wave changes with exercise Arrhythmia: None Echo Analysis Resting Echo: Normal resting echocardiogram. Peak Echo Analysis: Normal wall thickening and motion MEASUREMENTS (Male/Female) Normal Values CONCLUSIONS Patient falls into low-risk group (DTS >= +5). This associates the patient with an annual CV mortality <= 0.5%. Good exercise tolerance with normal electrocardiographic sponsor exercise Normal stress echocardiogram with no evidence of stress-induced ischemia Dr. Renetta Galeana MD (Electronically Signed) Final Date: 19 August 2024 13:35
--- NOTE | 2024-08-19 13:51 | CA ---
Transthoracic Echo Report Name: Sandra Roland Age: 68 Gender: F : 1955 Exam Date: 08/19/2024 09:46 Exam Location: [facility] Ht (in): 67 Wt (lb): 140 Ordering Physician: Page Moy MD Attending/Referring Phys: Jeffrey Damian MD ([email or web address]) Gas Pipe Layer Chiquita Hoover RDCS Procedure CPT: Indications: CP Cardiac Hx: Technical Quality: Fair Contrast 1: Total Dose (mL): Contrast 2: Total Dose (mL): MEASUREMENTS (Male / Female) Normal Values 2D ECHO LV Diastolic Diameter PLAX 3.3 cm 4.2 - 5.9 / 3.9 - 5.3 cm LV Systolic Diameter PLAX 2.2 cm IVS Diastolic Thickness 1.2 cm 0.6 - 1.0 / 0.6 - 0.9 cm LVPW Diastolic Thickness 1.1 cm 0.6 - 1.0 / 0.6 - 0.9 cm LV Relative Wall Thickness 0.7 RV Internal Dim ED PLAX 3.0 cm LVOT Diameter 1.8 cm LA Volume 25.8 cm??? 18 - 58 / 22 - 52 cm??? LA Volume Index 14.9 cm???/m??? 16 - 28 cm???/m??? DOPPLER AV Peak Velocity 116.3 cm/s AV Peak Gradient 5.4 mmHg AV Mean Velocity 79.5 cm/s AV Mean Gradient 2.9 mmHg AV Velocity Time Integral 25.3 cm LVOT Peak Velocity 97.6 cm/s LVOT Peak Gradient 3.8 mmHg LVOT Velocity Time Integral 21.8 cm LVOT Stroke Volume 58.5 cm??? LVOT Stroke Volume Index 33.6 ml/m??? AV Area Cont Eq vti 2.3 cm??? AV Area Cont Eq pk 2.2 cm??? MV Area PHT 2.7 cm??? Mitral E Point Velocity 67.0 cm/s Mitral A Point Velocity 51.3 cm/s Mitral E to A Ratio 1.3 MV Deceleration Time 277.1 ms MV E' Velocity 7.2 cm/s Mitral E to MV E' Ratio 9.3 FINDINGS Left Ventricle Mildly increased left ventricular wall thickness. Normal left ventricular systolic function with no obvious regional wall motion abnormalities. Left ventricular ejection fraction is estimated at 55-60 %. Normal left ventricular diastolic filling pattern. Right Ventricle Normal right ventricular size and function. Right ventricular systolic pressure within normal limits. Right Atrium Normal right atrial size. Left Atrium Normal left atrial size. Mitral Valve Structurally normal mitral valve. No mitral stenosis. Mild mitral regurgitation.mitral annular calcification. Aortic Valve Trileaflet aortic valve. No aortic valve stenosis or regurgitation.aortic valve sclerosis. Tricuspid Valve Structurally normal tricuspid valve. Mild tricuspid regurgitation. Pulmonic Valve Structurally normal pulmonic valve. Trace pulmonic regurgitation. Pericardium No pericardial effusion. Aorta Normal size aortic root and proximal ascending aorta. CONCLUSIONS Normal LV sytolic function Mild MR and TR Previewed by: Dr. Renetta Galeana MD (Electronically Signed) Final Date: 19 August 2024 13:49
--- NOTE | 2024-08-19 15:49 | P.DS ---
Providers Date of admission: 08/18/24 14:17 Expected date of discharge: 08/19/24 Attending physician: Coty Arthur MD Consults: 08/18/24 14:17 Consult Physician Urgent Consulting Provider: [facility] Consult Reason/Comments: Chest pain Do you want consulting provider notified?: Yes Primary care physician: [facility] Course: 68 year old F with no PMH presents to the ED for chest pain. Patient reports bronchitis she has been recovering from for the past week since returning from [place]. Chest pain started around 1030AM yesterday described as substernal, sharp and stabbing in nature without radiation. No associated symptoms. No radiation. No changes with deep inspiration or movement. Pain was intermittent and improved with Advil. This morning she woke up feeling chest pressure which prompted her to come to the ED. In the ED she underwent extensive evaluation. BP 202/84, HR 74, T 97.4F, RR 20, 98% on RA. CBC, Coag panel, CMP significant for WBC 11.5, Na 132, glu 108, alk phos 137. Trop < 0.012 x 2. COVID, RSV, Flu neg. EKG sinus rhythm without ST-T wave changes. CXR possible small posterior pleural effusion. Patient is admitted for Cardiology evaluation. Troponins < 0.012 x 3 and ACS ruled out. Cardiology consulted. Echo EF 55-60%, mild MR/TR. Patient underwent stress echo which was negative. Lipid panel T. Chol 225, LDL 132.3, HDL 65.9. 08/19 Patient was seen and examined. Chest pain resolved. Back to baseline. Discharge Plans: Prescribed Lipitor 20 mg PO QHS. Follow up with PCP within 1-2 days of discharge, Cardiology within 1 week of discharge. General: non toxic, no distress, appears at stated age Derm: warm, dry Head: atraumatic, normocephalic, symmetric Eyes: EOMI, no lid lag, anicteric sclera Mouth: no lip lesion, mucus membranes moist Cardiovascular: S1S2 reg, no murmur Lungs: CTA bilateral, no rhonchi, no rales , no accessory muscle use Ext: no gross muscle atrophy, no edema, no contractures Neuro: no focal neuro deficits Psych: Alert, oriented, appropriate affect Discharge Diagnosis: Chest pain Elevated BP without the diagnosis of hypertension This complex discharge took 35 minutes to complete. Patient Condition at Discharge: Stable Plan - Discharge Summary Discharge Rx Participant: No New Discharge Prescriptions: New Atorvastatin [Lipitor] 20 mg PO HS #30 tab Continue Benzonatate [Tessalon Perles] 200 mg PO TID PRN PRN Reason: Cough Azithromycin [Zithromax Z Pack] See Taper PO DIRECTED Albuterol Sulfate [Albuterol Sulfate Hfa] 2 puff PO RT-Q4H PRN PRN Reason: Shortness Of Breath Discharge Medication List Albuterol Sulfate [Albuterol Sulfate Hfa] 2 puff PO RT-Q4H PRN 08/18/24 [History] Azithromycin [Zithromax Z Pack] See Taper PO DIRECTED 08/18/24 [History] Benzonatate [Tessalon Perles] 200 mg PO TID PRN 08/18/24 [History] Atorvastatin [Lipitor] 20 mg PO HS #30 tab 08/19/24 [Rx] Follow up Appointment(s)/Referral(s): Renetta Galeana MD [STAFF PHYSICIAN] - 1 Week Mickey Donato MD [Primary Care Provider] - 1-2 days Discharge Disposition: HOME SELF-CARE
[2024-08-19] MEDS ORDERED: ATORVASTATIN 20 MG TAB PO SCH (21:00)
== END 2024-08-19 16:00 | disposition home or self-care (01) ==
LOC: EC 12:05 → 6NMEDSUR 14:17
PROVIDERS: ADMIT Internal Medicine; ATTEND Internal Medicine
DX: R07.2 Precordial pain (principal); R03.0 Elevated blood-pressure reading, without diagnosis of hypertension; J40 Bronchitis, not specified as acute or chronic; E78.5 Hyperlipidemia, unspecified; I08.1 Rheumatic disorders of both mitral and tricuspid valves; M25.512 Pain in left shoulder; M25.511 Pain in right shoulder; R61 Generalized hyperhidrosis; Z11.52 Encounter for screening for COVID-19; Z11.59 Encounter for screening for other viral diseases; Z87.891 Personal history of nicotine dependence
CPT/HCPCS: 96372; 96374; 99285; 36415; 93005 ×2; 93306; 93351; 80061; 80053; 83735; 84484; 85025; 85610; 85730; 87636; 71046; G0378 ×2; J1650; J1920

== ENCOUNTER → 2024-09-01 | Outpatient (CLI) | payer MEDICARE ==
--- NOTE | 2024-09-01 11:34 | FL ---
EXAMINATION TYPE: FL barium swallow DATE OF EXAM: 09/01/2024 9:15 AM COMPARISON: . Chest radiograph from same day. CLINICAL INDICATION:Female, 68 years old with history of R13.10 dysphagia; PHH, TECHNIQUE: The procedure was explained and patient history elicited. All patient questions were ans wered prior to start of procedure. Multiple spot fluoroscopic images of the esophagus were obtained a fter the oral ingestion of effervescent crystals and liquid barium as the contrast agent. Fluoroscopic time:27 sec Fluoroscopic images:0 Radiographs taken: 72 DAP: NOT REPORTED [id number] FINDINGS: The esophagus demonstrates normal primary and secondary peristalsis. Tertiary contractions are seen w ith delayed emptying of the esophageal contents. The esophageal mucosa is smooth without evidence of focal stricture, ulceration, or abnormal outpouching. No gastroesophageal reflux disease was identif ied IMPRESSION: Minimal esophageal dysmotility. [facility], , 09/01/2024 11:32 AM
== END | disposition home or self-care (01) ==
LOC: RADFLMAIN 08:16
PROVIDERS: ATTEND Family Medicine
DX: K22.4 Dyskinesia of esophagus (principal); R13.10 Dysphagia, unspecified
CPT/HCPCS: 74220